=== PATIENT | male | born 1960 | race Caucasian/White ===

== ENCOUNTER 2022-11-01 18:57 | Emergency (ER) | payer SELFPAY ==
--- NOTE | 2022-11-01 19:56 | NUR ---
Unable to locate pt in [facility].
--- NOTE | 2022-11-01 20:27 | NUR ---
Attempted to locate pt in [facility]; [facility]
[2022-11-02] MEDS ORDERED: FAMO-92 PO (09:01)
[2022-11-02] MEDS ORDERED: ONDA-188 PO (09:01)
[2022-11-02] MEDS ORDERED: AMOX-999 PO (10:28)
== END 2022-11-01 19:56 | disposition left against medical advice (07) ==
LOC: MED 18:57
DX: R50.9 Fever, unspecified (principal); Z53.21 Procedure and treatment not carried out due to patient leaving prior to being seen by health care provider

== ENCOUNTER 2022-11-02 06:55 | Emergency (ER) | payer OTHER ==
[~2022-11-02] VITALS: Ht 167.6 cm; Wt 70.3 kg
[2022-11-02 07:16] VITALS: BP 144/88; PULSE 118; RESP 19; TEMP 99.7; O2SAT 98
--- NOTE | 2022-11-02 07:23 | NUR ---
pt ambulatory to bed 09 accompanied by
[2022-11-02] MEDS ORDERED: KETOROLAC 30 MG/ML VIAL IVP ONE (07:35)
[2022-11-02] MEDS ORDERED: ONDANSETRON 4 MG/2 ML VIAL IVP ONE (07:35)
[2022-11-02] MEDS ORDERED: NACL 0.9% 1,000 ML IV SCH (07:35)
[2022-11-02 07:52] VITALS: O2SAT 96
--- NOTE | 2022-11-02 07:52 | NUR ---
61YO M PRESENT W/EPIGASTRIC PAIN X 1 WK INCREASING IN PAIN X 4 DAYS, FEVER AND NAUSEA X 2 DAYS, INTERMITTENT SOB, HX OF DM, PT DENIES VOMITING, DIZZINESS. SAFETY MAINTAINED, NO VISUAL DISTRESS.
[2022-11-02 07:56] LABS: BASOPHILS # (AUTO) 0.1 K/uL (0.00-0.22); BASOPHILS % (AUTO) 0.4 % (0.0-2.0); HEMATOCRIT 39.2 % (36-52); HEMOGLOBIN 13.3 g/dL (12.0-18.0); LYMPHOCYTES # (AUTO) 1.4 K/uL (2.0-11.5); LYMPHOCYTES % (AUTO) 10.8 % (20.5-51.1); MEAN CORPUSCULAR HEMOGLOBIN 29 pg (27-31); MEAN CORPUSCULAR HGB CONC 34 g/dL (33-37); MEAN CORPUSCULAR VOLUME 84.7 fL (80-94); MONOCYTES # (AUTO) 0.9 K/uL (0.8-1.0); MONOCYTES % (AUTO) 6.6 % (1.7-9.3); NEUTROPHILS % (AUTO) 82.2 % (42.2-75.2); PLATELET COUNT (AUTO) 288 K/uL (140-450); RED BLOOD CELL COUNT(AUTO) 4.63 MIL/uL (4.20-6.10); RED CELL DISTRIBUTION WIDTH 13.7 % (11.6-13.7); WHITE BLOOD COUNT (AUTO) 13.3 K/uL (4.8-10.8)
--- NOTE | 2022-11-02 08:13 | NUR ---
ASSUMED CARE C/O EPIGASTRIC PAIN , ASSO WITH NAUSEA, NO VOMITTING, NO DIARRHEA , + FEVER, MD AT BS TO EXAMINE, DISCUSS PLAN OF CARE , PT VERB GOOD UNDERSTANDING
[2022-11-02 08:22] LABS: ALBUMIN 3.3 g/dL (3.4-5.0); ANION GAP 12.9 (8-16); CARBON DIOXIDE 27.8 mmol/L (21-32); CREATININE 0.8 mg/dL (0.6-1.3); POTASSIUM 3.7 mmol/L (3.5-5.1); TOTAL BILIRUBIN 0.7 mg/dL (0.0-1.0)
--- NOTE | 2022-11-02 08:25 | NUR ---
PT SWABBED FOR TAE AND GIVEN TO CREW PERSON AT BEDSIDE.
[2022-11-02] MEDS ORDERED: FAMO-92 PO (09:01)
[2022-11-02] MEDS ORDERED: ONDA-188 PO (09:01)
--- NOTE | 2022-11-02 09:23 | NUR ---
The patient's care was reviewed and supervised by ROXANN HACKETT RN.
[2022-11-02 09:32] LABS: APPEARANCE,URINE CLEAR (CLEAR); BILIRUBIN,URINE NEGATIVE (NEGATIVE); BLOOD, URINE 1+ (NEGATIVE); COLOR,URINE YELLOW (YELLOW); LEUKOCYTE ESTERASE ,URINE NEGATIVE (NEGATIVE); NITRITE, URINE NEGATIVE (NEGATIVE); PH,URINE 7.5 (5.0-9.0); UGLUCOSE NEGATIVE (NEGATIVE)
[2022-11-02 09:48] LABS: COARSE GRANULAR CASTS,URINE None Seen /LPF (None Seen); FINE GRANULAR CASTS,URINE None Seen /LPF (None Seen); OTHER CASTS, URINE None Seen /LPF (None Seen); OTHER CRYSTALS,URINE None Seen /HPF (None Seen); RED BLOOD CELL CASTS,URINE None Seen /LPF (None Seen); TRICHOMONAS,URINE None Seen /HPF (None Seen); TRIPLE PHOSPHATE CRYSTAL,UR None Seen /HPF (None Seen); YEAST,URINE None Seen /HPF (None Seen)
[2022-11-02] MEDS ORDERED: ACETAMINOPHEN EXTRA STRENGTH 500 MG TAB PO ONE (09:50)
--- NOTE | 2022-11-02 09:53 | NUR ---
X-RAY AT BEDSIDE
[2022-11-02] MEDS ORDERED: AMOX-999 PO (10:28)
[2022-11-02 10:48] VITALS: BP 133/73; PULSE 103; RESP 18; TEMP 98.5; O2SAT 96
--- NOTE | 2022-11-02 10:49 | NUR ---
Patient discharged with v/s stable. Written and verbal after care instructions given and explained. Patient alert, oriented and verbalized understanding of instructions. Ambulatory with steady gait. All questions addressed prior to discharge. ID band removed. Patient advised to follow up with PMD. Rx AMOXICILLIN, FAMOTIDINE, ONDANSETRON of given. Opportunity to ask questions provided and answered.
== END 2022-11-02 10:48 | disposition home or self-care (01) ==
LOC: MED 06:55
DX: E11.9 Type 2 diabetes mellitus without complications (principal); Z20.822 Contact with and (suspected) exposure to COVID-19; Z79.899 Other long term (current) drug therapy
CPT/HCPCS: 36415; 71045; 76705; 80053; 81001; 83605; 83690; 85025; 87040; 87426; 93005; 96361; 96374; 96375; 99285; J1885; J2405; J7030; Q0092